=== PATIENT | female | born 1940 | race American Indian/Alaskan Native ===

== ENCOUNTER 2017-03-01 08:33 | Day surgery (SDC) | payer MEDICARE ==
[2017-03-01 09:22] LABS: Basophils % (Auto) 0.5 % (0.0-1.8); Eosinophils % (Auto) 2.3 % (0.0-4.3); Hematocrit 34.5 % (30.3-42.9); Mean Corpuscular HGB Conc 32 % (30-34); Mean Corpuscular Volume 77 fl (79-97); Platelet Count 186 K/mm3 (140-440); Red Blood Count 4.46 M/mm3 (3.65-5.03); Red Cell Distribution Width 14.7 % (13.2-15.2); White Blood Count 4.5 K/mm3 (4.5-11.0)
[2017-03-01 09:30] LABS: Mean Corpuscular Hemoglobin 25 pg (28-32)
[2017-03-01 09:31] LABS: INR 0.96 (0.87-1.13)
[2017-03-01 09:32] LABS: Partial Thromboplastin Time 30.3 Sec. (24.2-36.6)
[2017-03-01] MEDS ORDERED: SUBLIMAZE IV ONE ×3 (11:00→13:00)
[2017-03-01] MEDS ORDERED: VERSED IV ONE ×3 (11:00→13:00)
[2017-03-01] MEDS ORDERED: VERSED ONE (11:44)
[2017-03-01] MEDS ORDERED: NACL 0.9% 1000 ML 1,000 ML ONE (12:15)
--- NOTE | 2017-03-01 12:41 | Short Stay Summary ---
Short Stay Documentation Date of service: 03/01/17 - History Principal diagnosis: Renal mass - Allergies and Medications Current Medications: Allergies No Known Allergies Allergy (Verified 07/06/16 07:54) Home Medications Medication Instructions Recorded Confirmed Last Taken Type ALPRAZolam [Xanax TAB] 0.5 mg PO DAILY PRN 07/16/15 03/01/17 02/26/17 History Hydrochlorothiazide [HCTZ] 12.5 mg PO QDAY 07/16/15 03/01/17 02/28/17 History Lansoprazole [Prevacid] 30 mg PO DAILY 07/16/15 03/01/17 02/28/17 History Levothyroxine [Synthroid] 75 mcg PO DAILY 07/16/15 03/01/17 02/28/17 History Multivitamin-Mineral 1 tab PO DAILY 07/16/15 07/06/16 02/28/17 History Pravastatin (Nf) [Pravachol] 80 mg PO DAILY 07/16/15 03/01/17 02/28/17 History Vitamin C 1,000 mg PO DAILY 07/16/15 07/06/16 02/28/17 History Metoprolol Xl [Metoprolol 50 mg PO QDAY 07/06/16 03/01/17 02/28/17 History SUCCINATE ER TAB] Active Medications Fentanyl (Sublimaze) 100 mcg IV ONCE ONE Stop: 03/01/17 13:01 Sodium Chloride (Nacl 0.9% 1000 Ml) 1,000 mls @ 999 mls/hr IV DIRECT KATHRINE Midazolam HCl (Versed) 2 mg IV ONCE ONE Stop: 03/01/17 13:01 - Physical exam General appearance: no acute distress - Brief post op/procedure progress note Date of procedure: 03/01/17 Pre-op diagnosis: R renal mass Post-op diagnosis: same Anesthesia: local Surgeon: KATHY MACIAS Estimated blood loss: none Specimen disposition: to lab Condition: stable - Disposition Condition at discharge: Good Disposition: DISCHARGED TO HOME OR SELFCARE Short Stay Discharge Plan Follow up with: BALTA LOPEZ MD [Primary Care Provider] - 7 Days
[2017-03-01] MEDS ORDERED: NACL 0.9% 1000 ML 1,000 ML IV SCH (13:00)
--- NOTE | 2017-03-01 13:21 | Cat Scan Report ---
CT guided biopsy of right renal mass. Procedure: The patient was placed in the prone position. The patient's skin surface overlying the right posterior flank was prepped and draped using sterile technique. Local anesthetic was injected into the skin. Using CT guidance, a 19-gauge sheath needle was advanced into the small mass in the lower pole of the right kidney. 2 successive passes were made using a 20-gauge biopsy done. Independent cardiorespiratory monitoring was performed by the outpatient procedure nurse for 30 minutes, supervised by me. The patient tolerated the procedure well. The postbiopsy images demonstrate no evidence of significant right retroperitoneal hemorrhage. The patient was sent to the outpatient procedure unit for further short term observation.
[2017-03-01 16:31] VITALS: BP 135/82
== END 2017-03-01 16:53 | disposition home or self-care (01) ==
LOC: OPU 08:33
PROVIDERS: ATTEND Urology
DX: N28.89 Other specified disorders of kidney and ureter (principal); I10 Essential (primary) hypertension; Z79.899 Other long term (current) drug therapy
CPT/HCPCS: 36415; 50200; 77012; 85025; 85610; 85730; 88305; J2250; J3010; J7030; 88333; 88334

== ENCOUNTER 2019-02-16 06:53 | Outpatient (CLI) | payer MEDICARE ==
--- NOTE | 2019-02-16 09:47 | Fluoroscopy Report ---
DOUBLE CONTRAST BARIUM ENEMA INDICATION: Rectal bleeding in November 2018. COMPARISON: None similar. IMAGES/CINE CLIPS: [id number] FINDINGS: Preliminary radiograph demonstrates a nonobstructive bowel gas pattern. Aortoiliac stent repair and right upper quadrant probable cholecystectomy clips noted. Innumerable pelvic phleboliths. Demineralized bones with multilevel spinal degenerative changes, greatest lower lumbar. Using fluoroscopic guidance, the entire colon filled in retrograde fashion with barium and air. Colonic caliber and mucosal pattern appear normal in appearance, in so far seen. No constricting lesions or fixed intraluminal masses identified. Numerous ascending colon diverticuli. Reflux identified into the appendix. CONCLUSION: Ascending colon diverticulosis; otherwise unremarkable air contrast barium enema with few other findings as postsurgical changes, as above. Please correlate. Thank you for the opportunity to participate in this patient's care.
== END 2019-02-16 06:54 | disposition home or self-care (01) ==
LOC: FLUORO 06:53
PROVIDERS: ATTEND Internal Medicine Gastroenterology
DX: K57.30 Diverticulosis of large intestine without perforation or abscess without bleeding (principal); E78.00 Pure hypercholesterolemia, unspecified; I10 Essential (primary) hypertension; K21.9 Gastro-esophageal reflux disease without esophagitis
CPT/HCPCS: 74280